=== PATIENT | male | born 1975 | race African-American/Black ===

== ENCOUNTER 2016-07-31 11:41 | Emergency (ER) | payer MEDICAID, OTHER ==
[~2016-07-31] VITALS: Ht 198.1 cm; Wt 163.6 kg
[2016-07-31] MEDS ORDERED: TraMADol HCL 50 MG TABLET PO ONE (13:45)
[2016-07-31] MEDS ORDERED: KETOROLAC TROMETHAMINE 60 MG/2 ML VIAL IM ONE (13:45)
[2016-07-31] MEDS ORDERED: ONDANSETRON HCL 4 MG/2 ML VIAL IM ONE (16:30)
[2016-07-31] MEDS ORDERED: MORPHINE SULFATE 4 MG/ML SYRINGE IM ONE (16:30)
[2016-07-31 17:15] VITALS: BP 118/80
== END 2016-07-31 17:16 | disposition home or self-care (01) ==
LOC: EMS 11:43
DX: S93.402A Sprain of unspecified ligament of left ankle, initial encounter (principal); S39.012A Strain of muscle, fascia and tendon of lower back, initial encounter; F17.210 Nicotine dependence, cigarettes, uncomplicated; V87.8XXA Person injured in other specified noncollision transport accidents involving motor vehicle (traffic), initial encounter; Y93.89 Activity, other specified; Y92.89 Other specified places as the place of occurrence of the external cause; Y99.8 Other external cause status
CPT/HCPCS: 29505; 72202; 73600; 73630; 96372; 99284; J1885; J2270; J2405